=== PATIENT | male | born 1955 | race Caucasian/White ===

== ENCOUNTER 2018-08-03 09:54 | Inpatient (IN) ==
[2018-08-03] MEDS ORDERED: Aspirin 81 MG TAB.CHEW PO ONE (10:00)
[2018-08-03] MEDS ORDERED: Nitroglycerin 0.4 MG TAB.SUBL SL ONE (10:04)
[2018-08-03] MEDS: Nitroglycerin 0.4 MG TAB.SUBL SL PRN ×2 (10:11→10:37)
[2018-08-03] MEDS ORDERED: *HR* LORazepam 2 MG/ML VIAL IVP STA (10:12)
[2018-08-03] MEDS ORDERED: Ondansetron 4 MG/2 ML VIAL IVP ONE (10:12)
--- NOTE | 2018-08-03 10:13 | Emergency Department Note ---
Disposition Clinical Impression: STEMI (ST elevation myocardial infarction) Qualifiers: Involved coronary artery: left circumflex coronary artery Qualified Code(s): I21.21 - ST elevation (STEMI) myocardial infarction involving left circumflex coronary artery Disposition: Admitted As Inpatient Condition: Critical Time of Disposition: 10:18 General Adult HPI - General Stated complaint: Chest Pain Time Seen by Provider: 08/03/18 10:00 Source: patient Mode of arrival: EMS Limitations: no limitations Nursing Notes Reviewed: Yes Vital Signs Reviewed: Yes - History of Present Illness HPI Narrative: 63-year-old male, some day smoker with history of hypertension and obesity presents the emergency department with complaints of chest pain, shortness of breath and pain into his right upper extremity. This started approximately 1- 1/2 hours ago while at work. He states the pain is like a burning sensation in his chest, radiating into his right upper extremity. He states the pain is making him short of breath. He denies any back pain, nausea or vomiting. He does note his father had acute TX in his 50s. He denies any previous history of cardiac disease and has never had a catheterization or stress test. Pain Scale: 10 - Related Data Home Medications Medication Instructions Recorded Confirmed Unable To Obtain [Unable to Obtain] 08/03/18 08/03/18 Allergies Allergy/AdvReac Type Severity Reaction Status Date / Time No Known Allergies Allergy Verified 08/03/18 10:11 All systems ED: reviewed and negative except as stated. Review of Systems: As Per HPI Past Medical History - Past Medical History Medical history: Reports: hypertension - Social History Smoking Status: Current some day smoker Alcohol use: Reports: none Drug use: Reports: none Physical Exam General: Conversant. Appears stated age. Obese. Patient is significantly anxious, diaphoretic. Neck: No JVD. Trachea midline. Neck supple. Eyes: PERRL. No scleral icterus. HENT: Normocephalic and atraumatic. Moist mucus membranes. Cardiovascular: Regular rate and rhythm. Normal S1 and S2. No murmurs appreciated. Normal capillary refill. Extremities well perfused with 2+ distal pulses radial bilaterally. No edema. Pulmonary: Normal and equal breath sounds bilaterally, anteriorly and posteriorly. No wheezes, rales, or rhonchi. Tachypnea ot in respiratory distre ss. Speaks in full sentences. Abdomen: Soft, nondistended, and tontender. No bruits or masses. No guarding. Neuro: Alert and oriented x3. No slurred speech. No focal deficits noted. No pronator drift. No decreased sensation in bilateral upper extremities. Skin: No rashes noted on visualized skin. Musculoskeletal: No bony abnormalities visualized. Moves all extremities. Psych: Normal mood. Pleasant. Makes appropriate eye contact. - General General appearance: alert Course - Consultations Consultation #1: Discussed case with Dr. Quijano, mash processing operator. He recommends starting heparin drip, nitro, and brillinta. Will initiate STEMI activation given likely early ST changes. Time: 10:12 Vital Signs Temperature 98.6 F 08/03/18 09:56 Pulse Rate 125 08/03/18 09:56 Respiratory Rate 20 08/03/18 09:56 Blood Pressure 165/102 08/03/18 09:56 O2 Sat by Pulse Oximetry 100 08/03/18 09:56 Temperature 98.4 F 08/03/18 16:44 Pulse Rate 79 08/03/18 16:00 Respiratory Rate 14 08/03/18 16:00 Blood Pressure 160/93 08/03/18 16:00 O2 Sat by Pulse Oximetry 98 08/03/18 16:00 Oxygen Delivery Oxygen Delivery Room Air Medical Decision Making - [facility] Narrative Medical decision making narrative: 63-year-old male, Friday smoker with history of hypertension and family history of cardiac disease who presents to the emergency department with complaints of chest pain. On arrival the patient's tachycardic and diaphoretic. He appears significantly anxious and in distress. Initial EKG shows ST elevations in 2, [address] depressions in V2. Upon obtaining this EKG we did send this to mash processing operator, Dr. Quijano who given the story and risk factors agree that this is likely an acute ST elevation myocardial infarction. STEMI alert called. The patient did have improvement in his pain with nitroglycerin. He was also given a dose of Ativan given his significant anxiety. He recommends initiating the patient on heparin and probably into as well as aspirin. Chest x-ray was obtained prior to cardiac catheterization and shows no evidence of widened mediastinum to explain the patient's symptoms. Discussed case with on- call mash processing operator, Dr. Quijano who agrees with plan for admission and accepts the patient to the cardiology service for immediate cardiac catheterization. Patient agrees with and understands course of treatment plan including plan for admission. All questions answered. - Medical Records Medical records reviewed: Yes I reviewed the patient's medical records. - Lab Data Lab results reviewed: Yes I reviewed the patient's lab results. Result diagrams: 08/03/18 10:10 08/03/18 10:10 Lab Results 08/03/18 08/03/18 08/03/18 Range/Units 10:00 10:10 10:10 WBC 8.8 (4.3-11.1) K/mcL RBC 5.04 (4.19-5.50) M/mcL Hgb 15.1 (12.9-16.9) g/dL Hct 44.8 (37.5-50.1) % MCV 88.9 (83.0-100.0) fL MCH 30.0 (28.0-33.3) pg MCHC 33.7 (31.6-35.5) g/dL RDW 12.7 (11.5-14.5) % Plt Count 254 (140-400) K/mcL MPV 10.2 (9.4-12.4) fL Immature Gran % 0.5 (0-4) % Seg Neutrophils % 63.8 % Lymphocytes % 23.9 % Monocytes % 9.3 % Eosinophils % 1.4 % Basophils % 1.1 % Neutrophils # 5.6 (1.6-8.9) K/mcL Lymphocytes # 2.1 (0.6-4.6) K/mcL Monocytes # 0.8 (0.0-1.3) K/mcL Eosinophils # 0.1 (0.0-0.6) K/mcL Basophils # 0.1 (0.0-0.2) K/mcL PT 11.4 (9.4-12.1) Seconds INR 1.0 APTT 31.1 (26.0-36.0) Seconds Sodium 135 L (136-145) mEq/L Potassium 3.8 (3.5-5.1) mEq/L Chloride 102 (98-107) mEq/L Carbon Dioxide 23 (23-29) mEq/L BUN 16 (8-23) mg/dL Creatinine 0.86 (0.70-1.30) mg/dL Est GFR ( Amer) > 60 (> 60) Est GFR (Non-Af Amer) > 60 (> 60) BUN/Creatinine Ratio 19 (6-26) Glucose 225 H (70-105) mg/dL Calculated Osmolality 288 (280-300) Calcium 9.5 (8.6-10.3) mg/dL Troponin I < 0.03 (< 0.04) ng/mL - Radiology Data Radiology results reviewed: Yes I reviewed the patient's radiology results. Chest X-Ray 08/03/18 10:00 IMPRESSION: 1. No active pulmonary disease. D/ / Meek Souza MD / Meek Souza MD Interpreting Provider: Meek Souza MD - EKG Data EKG #1 EKG attestation: Yes I reviewed and interpreted this EKG. EKG results narrative: EKG timed 1002 shows sinus tachycardia rate of 131. Normal intervals. There are ST elevations in 2, 3 and aVF. There is minimal ST depression in V2. . There is slight ST elevation and B6. No prior for comparison. Attestation Statement - Attestation Attestation: I, Juan Ramon Morales, examined this patient and my medical decision-making was reviewed with the CLINICAL PHARMACY COORDINATOR/PA/Advanced Practice Nurse/Resident Physician. I agree with the documented findings, disposition and treatment plan as described except to the extent set forth below. 63-year-old male presents emergency Department with concerns of chest pain and right upper extremity pain. Patient states symptoms started within the past 2 hours while he was at work. He reports tingling in the right upper extremity that is very anxiety provoking. Patient states the pain is associated with diaphoresis, nausea, vomiting, shortness breath. Patient is tachycardic in the emergency department. He has ST elevations of leads 2 and 3 and aVF with depression in V2 without other ST depression. We spoke with the florist's decorator who agreed that patient would benefit from immediate catheterization. STEMI alert was called and patient was transferred to the Assembly Loader for further evaluation. He was given aspirin, Brillinta, heparin emergency department. Chest x-ray did not show evidence of aortic dissection. I reviewed the EKG with the resident and agree with the interpretation.
[2018-08-03] MEDS ORDERED: *HR* Heparin 5,000 UNIT/ML VIAL IVP ONE (10:14)
[2018-08-03] MEDS ORDERED: *HR* Ticagrelor 90 MG TABLET PO ONE (10:14)
[2018-08-03] MEDS ORDERED: *HR* Heparin 5,000 UNIT/ML VIAL IVP PRN ×4 (10:14→10:22)
[2018-08-03] MEDS ORDERED: *HR* Heparin 5,000 UNIT/ML VIAL ONE (10:16)
[2018-08-03] MEDS ORDERED: *HR* Ticagrelor 90 MG TABLET ONE (10:16)
[2018-08-03] MEDS ORDERED: 0.9 % Sodium Chloride 1,000 ML ONE ×4 (10:16→10:58)
[2018-08-03] MEDS ORDERED: Aspirin 81 MG TAB.CHEW ONE (10:16)
[2018-08-03 10:26] LABS: Basophils # 0.1 K/mcL (0.0-0.2); Basophils % 1.1 %; Eosinophils # 0.1 K/mcL (0.0-0.6); Eosinophils % 1.4 %; Hematocrit 44.8 % (37.5-50.1); Hemoglobin 15.1 g/dL (12.9-16.9); Immature Granulocytes % 0.5 % (0-4); Lymphocytes # 2.1 K/mcL (0.6-4.6); Lymphocytes % 23.9 %; Mean Corpuscular HGB Conc 33.7 g/dL (31.6-35.5); Mean Corpuscular Volume 88.9 fL (83.0-100.0); Mean Platelet Volume 10.2 fL (9.4-12.4); Monocytes # 0.8 K/mcL (0.0-1.3); Monocytes % 9.3 %; Neutrophils # 5.6 K/mcL (1.6-8.9); Platelet Count 254 K/mcL (140-400); Red Blood Count 5.04 M/mcL (4.19-5.50); Red Cell Distribution Width 12.7 % (11.5-14.5); Segmented Neutrophils % 63.8 %; White Blood Count 8.8 K/mcL (4.3-11.1)
[2018-08-03] MEDS ORDERED: *HR* FentaNYL (PF) 100 MCG/2 ML VIAL IVP ONE (10:28)
[2018-08-03] MEDS ORDERED: Heparin 25,000 UNIT/250 ML D5W 25,000 UNIT/250 ML IV.SOLN IVC SCH (10:30)
[2018-08-03 10:33] LABS: Prothrombin Time 11.4 Seconds (9.4-12.1)
[2018-08-03 10:36] LABS: Activated Partial Thrombo Time 31.1 Seconds (26.0-36.0)
[2018-08-03] MEDS ORDERED: Nitroglycerin 1,000 MCG/10 ML VIAL IV ONE ×2 (10:37→10:59)
[2018-08-03] MEDS ORDERED: Heparin 1,000 UNITS/500 mL 500 ML ONE ×2 (10:37→10:58)
[2018-08-03] MEDS ORDERED: ISOVUE-370 200 ML INFUS..BTL ONE ×2 (10:37→10:59)
[2018-08-03] MEDS ORDERED: *HR* Heparin 10,000 UNIT/10 ML VIAL ONE ×2 (10:37→10:58)
[2018-08-03] MEDS ORDERED: *HR* FentaNYL (PF) 100 MCG/2 ML VIAL ONE (10:41)
[2018-08-03] MEDS ORDERED: *HR* Midazolam HCl 2 MG/2 ML VIAL ONE (10:41)
[2018-08-03 10:47] LABS: BUN/Creatinine Ratio 19 (6-26); Blood Urea Nitrogen 16 mg/dL (8-23); Calcium 9.5 mg/dL (8.6-10.3); Carbon Dioxide 23 mEq/L (23-29); Chloride 102 mEq/L (98-107); Glucose 225 mg/dL (70-105); Osmolality,Calculated 288 (280-300); Potassium 3.8 mEq/L (3.5-5.1); Sodium 135 mEq/L (136-145); eGFR For African Americans > 60 (> 60); eGFR For Non-African Americans > 60 (> 60)
[2018-08-03 10:48] LABS: Troponin I < 0.03 ng/mL (< 0.04)
[2018-08-03] MEDS ORDERED: Tirofiban 12.5 MG/250ML 12.5 MG/250 ML BAG ONE (10:50)
[2018-08-03] MEDS: Tirofiban 12.5 MG/250ML 12.5 MG/250 ML BAG IVC SCH ×2 (11:35→17:13)
--- NOTE | 2018-08-03 11:41 | Invasive Diagnostic Lab Proc ---
Name: Shahzad Lane Date of Study: 08/03/2018 Date: 1955 Ht: 72.0in Medical Record#: [id number] Age: 63 Wt: 341.72lb Gender: Male BSA: 2.68 Order #: [id number] BMI: 46.28 Physicians Procedure Physician: Kassy Quijano MD Referring MD: Referring MD: Staff Name [facility] 10:45 AM Amador Rendon RN Device Processing Engineer 10:45 AM Brandon Mae RN Device Processing Engineer 10:45 AM Roro Chowdhury RT (R) Scrub 10:45 AM Chiqui Mcfarland RT (R) Scrub 10:45 AM Indications Indication STEMI Procedures Performed Procedure PRQ CARD REVASC ID 1 VSL L HRT ARTERY/VENTRICLE ANGIO Pre-Procedure Checklist Informed consent is complete signed and on chart. H&P is on chart. ID band is on and ID verified with patient. Patient NPO for procedure The procedure was described for the patient and questions were answered. Blood Pressure: 157/86 ECG is on chart. Plan of Care Patient will tolerate the procedure without complications. Adequate level of comfort will be maintained. Hemodynamics will remain stable Patient will recover from procedure without complications. Respiratory function will be maintained. Cardiac rhythm will remain stable. Patient temperature will be maintained. Patient and/or family have verbalized understanding of the procedure. Patient Education Intravenous Access Time IV Size Location DC'd Fluid/Drip Rate Units RN 18g 1 1/4" Patent On Arrival Rt Antecubital 0.9NaCl 100 ml/hr Brandon Mae RN Allergies No Known Allergies Vital Signs Time BP (mmHg) HR (bpm) O2 Sat. RR (bpm) LOC 10:46 AM / % 5 = Fully awake and oriented or at pre-proc level 10:46 AM 58 / 43 125 99 % 24 10:47 AM 145 / 87 115 97 % 11 11:02 AM 132 / 73 76 97 % 16 Procedural Medications Time Medication Dose Units Method Given By 10:46 AM Oxygen 2 L/min nasal cannula Brandon Mae RN 10:50 AM Lidocaine 2% 20 ml Subcutaneous Kassy Quijano MD 10:55 AM Heparin 4000 units Intravenous Brandon Mae RN 11:00 AM Nitroglycerin 200 mcg Intracoronary Arnold Quijano MD ASA Classification: Emergent Procedure: ASA score is assumed Segundo Score Preprocedure Postprocedure Activity 2- Moves 4 extremities sustained head lift Activity 2- Moves 4 extremities sustained head lift Circulation 2- SBP +/= 20 points of pre-anesthetic level Circulation 2- SBP +/= 20 points of pre-anesthetic level Consciousness 2- Awake and alert oriented x 3 Consciousness 2- Awake and alert oriented x 3 O2 Saturation 2- Able to maintain O2 satruation of 92% on room air O2 Saturation 2- Able to maintain O2 satruation of 92% on room air Respiratory 2- Able to deep breathe and cough well Respiratory 2- Able to deep breathe and cough well Total Score 10 Total Score 10 Contrast Agent: Isovue Diagnostic Contrast: 180 ml Total Contrast: 180 ml Fluoro Dose: 42 mGy Activated Clotting Time Time Seconds to Clot 10:54 AM 144 11:12 AM 268 Procedure Log Time Note Enter By 10:42 AM Pt arrived to slab miller operator 2 at 10:42 [facility] 10:42 AM Vita Castellano RN Position: Monitor Time in: 10:42 [facility] 10:42 AM Amador Rendon RN Position: Device Processing Engineer Time in: 10:42 [email or web address] 10:42 AM Brandon Mae RN Position: Device Processing Engineer Time in: 10:42 tsmmers 10:42 AM Roro Chowdhury RT (R) Position: Scrub Time in: 10:42 [email or web address] 10:42 AM Chiqui Mcfarland RT (R) Position: Scrub Time in: 10:42 tsmmers 10:44 AM CathStat 10:44 AM Vitals capture started with the following parameters, Patient=Adult, Interval=5 min, Initial Wcfrxtdq=169 mmHg, Deflation Rate=5 mmHg, Cuff placed on Left Arm 10:45 AM Patient charges- Angio tray pack, Navilyst 3mm J, Pulse Oximetry and ACIST tubing and transducer [facility] 10:45 AM Physician arrived 10:45 [facility] 10:45 AM Meet and greet completed [facility] 10:45 AM Sign in performed according to hospital policy. Informed consent was obtained. [facility] 10:45 AM Procedure start 10:45 [facility] 10:46 AM CM=533 bpm, NIBP=58/43 mmhg, SpO2=99.0 %, Resp=24 B/min, EtCO2=29 mmHg 10:46 AM Time: 10:46 Oxygen on at 2 L/min per nasal cannula [facility] 10[facility] AM Time: 10:46 Patient comfortable and pain free: Yes tsoumm 10:46 AM Time: 10:46LOC: 5 = Fully awake and oriented or at pre-proc level tsoummers 10:46 AM NIBP STAT measurement started. 10:46 AM Clinical Presentation: STEMI or equivalent [facility] 10:47 AM Time out was performed according to hospital policy. Conscious sedation and anesthesia was achieved (see medication log with in this report above) [facility] 10:47 AM Critical cardiac patient with acute ID was brought emergently to the cardiac woven label designer for immediate coronary angiography and intervention if clinically indicated. [facility] 10:47 AM NIBP STAT measurement started. 10:47 AM Recorded ECG: VP=990 Condition=Condition 1 10:47 AM BN=969 bpm, EHRK=309/87 mmhg, SpO2=97.0 %, Resp=11 B/min, EtCO2=30 mmHg 10:49 AM Pressure channel 1 zeroed. 10:50 AM Time: 10:50 20 ml Lidocaine 2% to right groin Subcutaneous Given by Kassy Quijano MD [facility] 10:50 AM Micro-Introducer Kit utilized for sheath placement [facility] 10:50 AM Access obtained by percutaneous puncture. 6Fr 10cm Terumo Novelty sheath placed in right Femoral artery. [id number] [facility] 10:51 AM 5Fr FL 4 catheter inserted over the wire [facility] 10:51 AM 0.035 145cm Navilyst 3mmJ wire [id number] [facility] 10:52 AM wire removed [facility] 10:52 AM LCA angiography performed in multiple views. [facility] 10:53 AM Recorded Pressure: Ao, KR=613, Condition=Condition 1 (Aorta) Ao 109/83/96 10:54 AM Catheter removed [facility] 10:54 AM 5Fr FR 4 catheter inserted over the wire [facility] 10:54 AM At 10:54 the ACT was 144 seconds. [facility] 10:55 AM Time: 10:55 Heparin 4000 units Intravenous Given by Brandon Mae RN [facility] 10:55 AM RCA angiography performed in multiple views. 10:55 AM Recorded Pressure: Ao, HR=75, Condition=Condition 1 (Aorta) Ao 99/50/78 10:56 AM Catheter removed tsoumm 10:56 AM 6Fr XB3.5 [place] Bright-Tip guide catheter was used to cannulate the PCI vessel successfully. reused? No tsmm 10:56 AM Inflation device was opened. tsmm 10:56 AM Lesion found in 1st Marginal. Pre Stenosis: 100 Pre DAISY Flow: 0: No Flow/No perfusion tsmm 10:57 AM Circumflex, Obtuse Marginal, Left Posterior Descending, and Left Posterolateral Coronary Arteries with 100 % stenosis. If graft is supplying this area, 0 % stenosis tsmm 10:58 AM acist injector failure. Setting up mannifold. 11:00 AM Time: 11:00 Nitroglycerin 200 mcg Intracoronary Given by Arnold Quijano MD 11:01 AM NIBP STAT measurement started. 11:02 AM HR=76 bpm, WXFG=988/73 mmhg, SpO2=97.0 %, Resp=16 B/min, EtCO2=29 mmHg 11:02 AM .014 [employer] Pearson 190cm guide wire across target lesion- successful. reused? No mm 11:05 AM 2.0 mm x 20 mm Emerge Monorail balloon across target lesion- successful. reused? No mm 11:05 AM Balloon inflated @ 6 keri for 5 seconds oumm 11:06 AM Balloon inflated @ 6 keri for 9 seconds [facility] 11:07 AM Recorded Pressure: Ao, HR=74, Condition=Condition 1 (Aorta) Ao 107/61/82 11:08 AM Balloon catheter removed intact. tsmm 11:08 AM 3.0mm x 28mm Synergy drug-eluting stent across target lesion- successful Lot #[id number] mm 11:10 AM Stent deployed @ 9 keri for 5 seconds tsoumm 11:11 AM Stent balloon reinflated @ 9 keri for 14 seconds tsmm 11:11 AM Stent delivery system removed intact. tsoumm 11:12 AM At 11:12 the ACT was 268 seconds. [facility] 11:12 AM Recorded Pressure: Ao, HR=77, Condition=Condition 1 (Aorta) Ao 122/66/91 11:15 AM Guide wire removed intact. 11:16 AM Guide catheter removed intact. 11:16 AM 5Fr Pigtail catheter inserted over the wire [facility] 11:17 AM Catheter crossed the aortic valve and was selectively placed in the left ventricle. Pressures recorded on pullback for left heart catheterization. 11:17 AM Bolus angiogram of left Ventricle complete: hand injection 11:18 AM Recorded Pressure: LV, HR=77, Condition=Condition 1 (Left Ventricle) LV 120/19 11:18 AM Recorded Pressure: LV, Ao, HR=74, Condition=Condition 1 (Left Ventricle) LV 124/01/05, (Aorta) Ao 117/58/85 11:19 AM Catheter removed 11:19 AM Procedure completed at 11:19 08/03/2018[facility] 11:20 AM Sign out completed: Radiation Dose 700.21 mGy, 41.5 Gy/cm2 Fluoro Time: 7.4 Isovue 370 - 200ml contrast 180 ml given by Kassy Quijano MD. Complications: None. The patient was discharged out of the woven label designer in stable condition. Sedation minutes no sedation administered. Cardiac Rehab Consult needed: Yes. Confirmed administered medications: Yes 11:20 AM Isovue 370 - 200ml,1 Bottle(s) used. 11:21 AM Arterial sheath pulled, Angio-seal closure device used and was Successful [id number] S/N. [facility] 11:21 AM Estimated Blood Loss: less than 20cc mm 11:21 AM Post ECG NSR mm 11:21 AM Post Blood Pressure 132/73 [facility] 11:21 AM Information taught Cardiac Cath, PCI, and Angioseal [facility] 11:21 AM Education needs Procedure, Plan of Care, and Responsibilities of Patient in Care [facility] 11:21 AM Learning barriers :None mm 11:21 AM Education Methods Verbal [facility] 11:22 AM Education evaluation Able to repeat information [facility] 11:22 AM Site status No bleeding/hematoma - Rt Groin as reported by Sites, Roro RT (R) at 11:22 [facility] 11:22 AM Opsite applied [facility] 11:22 AM Plavix, Effient or Brilinta given No- 180mg brilinta administered in ED PURE PAK MACHINE OPERATOR mm 11:22 AM Delay to floor No mm 11:22 AM no family present 11:26 AM Coronary Dominance: right mm 11:26 AM Did you address DAISY flow and Dominance? YesCoronary Dominance: right mm 11:30 AM Report given to Yesenia MORALES Pt taken to ICU Room #4. 11:30 mm 11:30 AM Patient out of room: 11:30 oumm 11:33 AM Lesion found in Mid RCA. Pre Stenosis: 65 Pre DAISY Flow: oumm 11:33 AM Lesion found in Mid LAD. Pre Stenosis: 50 Pre DAISY Flow: mm 11:33 AM Lesion found in Distal Circumflex. Pre Stenosis: 60 Pre DAISY Flow: oumm 11:34 AM Mid/Distal Left Anterior Descending Coronary Artery and diagonal branches with 50% stenosis. If graft is supplying this area, 0 % stenosis [facility] 11:34 AM Right Coronary, Right Posterior Descending Arteries with Right Posterolateral and Acute Marginal branches with 65 % stenosis. If graft is supplying this area, 0 % stenosis [facility] Complications Complication None Hemodynamics Pressures Site Systolic/A Wave Diastolic/V Wave Mean AO 109 83 96 AO 99 50 78 AO 107 61 82 AO 122 66 91 LV 120 10 19 LV 124 11 19 AO 117 58 85 Post Procedure Information Blood Pressure: 132/73 mmHg Rhythm: NSR Post procedural instructions were given Closure Device Time Device Success/Fail 08/03/2018 11:23:00 AM Angio-Seal VIP Successful Site Checks Time Location Status Staff Sheath In? Note 11:22 AM Rt Groin No bleeding/hematoma Sites, Roro RT (R) Pulses Updated by Vita Castellano RN on 08/03/2018 11:36:14 AM electronically signed on 08/03/2018 11:36:33 AM with status of Final
--- NOTE | 2018-08-03 11:51 | Cardiology History & Physical ---
Date of Encounter: 08/03/18 Time of Encounter: 11:44 Assessment and Plan (1) STEMI (ST elevation myocardial infarction) Current Visit: Yes Status: Acute The assessment and plan as outlined above was discussed with the patient and/or family members who expressed understanding and agreement. All questions were answered. Severe chest pain, Inferior ST elevations, R/B/A d/w patient and he agrees to proceed with emergent LHC Qualifiers: Involved coronary artery: left circumflex coronary artery Qualified Code(s ): I21.21 - ST elevation (STEMI) myocardial infarction involving left circumflex coronary artery History of Present Illness Chief complaint: Chest Pain HPI: Mr. Lane is a 63 year old male hx of HTN, here with new onset chest pain started at 8am excruciating found to have inferior STEMI. RSCP burning radiating down avtar UE's. R/B/A of emergent LHC d/w patient and he agrees to proceed. History limited due to emergent LHC and severe chest pain. Past Med Surg Social Fam HX - Past Medical History Medical history: hypertension - Social History Smoking Status: Current some day smoker Alcohol use: none Drug use: none Medications and Allergies Unable To Obtain [Unable to Obtain] 08/03/18 [History] Allergy/AdvReac Type Severity Reaction Status Date / Time No Known Allergies Allergy Verified 08/03/18 10:11 All Systems Review: The remainder of the systems were reviewed and are negative Physical Examination Vital Signs, Last 4 Hours Temp Pulse Resp BP Pulse Ox 08/03/18 10:36 117 19 99 08/03/18 10:24 132 22 99 08/03/18 10:10 139 19 157/86 100 08/03/18 09:56 98.6 F 125 20 165/102 100 General: Conversant, No Apparent Distress HEENT: Atraumatic, Normocephaly, Mucus Membranes Moist Neck: No JVD, Normal carotid pulses Cardiac: Reg Rate and Rhythm, Normal S1 and S2, No Murmur Lungs: Normal Breath Sounds, No Wheeze, Rales, Rhonchi Neuro: Alert and responsive, No focal deficits noted Abdomen: Soft, Non-Tender Skin: No rashes noted on visualized skin Musculoskeletal: No Chest Wall Tenderness Extremities: No Clubbing, No Cyanosis, No Edema, Normal Pulses Results 08/03/18 10:10 08/03/18 10:10 Lab Results 08/03/18 08/03/18 08/03/18 10:00 10:10 10:10 WBC 8.8 Hgb 15.1 Hct 44.8 Plt Count 254 INR 1.0 APTT 31.1 Sodium 135 L Potassium 3.8 Chloride 102 Carbon Dioxide 23 BUN 16 Creatinine 0.86 Glucose 225 H Calcium 9.5 Troponin I < 0.03
--- NOTE | 2018-08-03 17:19 | Electrocardiograph Report ---
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
[2018-08-03] MEDS ORDERED: Perflutren Lipid Microsphere 1.3 ML in 0.9 % Sodium Chloride 8.7 ML IVP ONE (17:35)
[2018-08-03] MEDS: *HR* Ticagrelor 90 MG TABLET PO SCH (19:53)
[2018-08-03] MEDS ORDERED: Ondansetron 4 MG/2 ML VIAL IVP PRN (22:03)
[2018-08-03] MEDS ORDERED: *HR* Metoprolol 5 MG/5 ML VIAL IVP ONE (23:59)
[2018-08-04 05:12] LABS: Basophils # 0.1 K/mcL (0.0-0.2); Basophils % 0.6 %; Eosinophils % 0.3 %; Hematocrit 45.7 % (37.5-50.1); Hemoglobin 15.2 g/dL (12.9-16.9); Immature Granulocytes % 0.3 % (0-4); Lymphocytes # 1.4 K/mcL (0.6-4.6); Mean Corpuscular HGB Conc 33.3 g/dL (31.6-35.5); Mean Corpuscular Hemoglobin 30.1 pg (28.0-33.3); Mean Corpuscular Volume 90.5 fL (83.0-100.0); Mean Platelet Volume 10.1 fL (9.4-12.4); Monocytes % 8.3 %; Neutrophils # 9.4 K/mcL (1.6-8.9); Platelet Count 275 K/mcL (140-400); Red Blood Count 5.05 M/mcL (4.19-5.50); Segmented Neutrophils % 78.5 %
[2018-08-04 05:31] LABS: BUN/Creatinine Ratio 14 (6-26); Blood Urea Nitrogen 11 mg/dL (8-23); Calcium 9.7 mg/dL (8.6-10.3); Carbon Dioxide 23 mEq/L (23-29); Chloride 105 mEq/L (98-107); Glucose 139 mg/dL (70-105); Osmolality,Calculated 288 (280-300); Potassium 3.9 mEq/L (3.5-5.1); Sodium 138 mEq/L (136-145); eGFR For African Americans > 60 (> 60); eGFR For Non-African Americans > 60 (> 60)
[2018-08-04] MEDS: *HR* Ticagrelor 90 MG TABLET PO SCH ×2 (07:54→20:21)
[2018-08-04] MEDS ORDERED: Aspirin 81 MG TAB.CHEW PO SCH (09:00)
--- NOTE | 2018-08-04 09:12 | Cardiology Progress Note ---
Date of Encounter: 08/04/18 Time of Encounter: 09:09 Assessment and Plan (1) STEMI (ST elevation myocardial infarction) Current Visit: Yes Status: Acute Presented with severe chest pain, Inferior ST elevations, taken to emergent C 08/03/18. C--patient had successful PTCA/Drug-Eluting Stent placement in the 1st OM. There is severe one vessel coronary artery disease. LVEF is 50%. DAPT (ASA and Brilinta) uninterrupted x 1 year. Pt verbalizes understanding. Continue Statin and BB. Will increase BB for BP and HR. Right femoral access site healing well. No bleeding, hematoma or ecchymosis noted. No events on tele. Labs stable. Pt denies chest pain overnight. Will step down today. Anticipate d/c home tomorrow. Qualifiers: Involved coronary artery: left circumflex coronary artery Qualified Code(s): I21.21 - ST elevation (STEMI) myocardial infarction involving left circumflex coronary artery Discussion w patient/family: The assessment and plan as outlined above was discussed with the patient and/or family members who expressed understanding and agreement. All questions were answered. Thank you for involving us in the care of your patient. Please call w ith any questions. I will discuss all the above with Dr. Doherty and make changes as necessary. Subjective Principal diagnosis: STEMI Interval history: No acute complaints this AM. Objective Vital Signs, Last 4 Hours Temp Pulse Resp BP Pulse Ox 08/04/18 08:04 98.2 F 08/04/18 08:00 105 18 154/85 97 08/04/18 05:54 63 16 129/88 92 Vital Signs Temp Pulse Resp BP Pulse Ox 08/04/18 08:04 98.2 F 08/04/18 08:00 105 18 154/85 97 08/04/18 05:54 63 16 129/88 92 08/04/18 04:57 68 16 126/72 96 08/04/18 03:51 72 16 118/72 93 08/04/18 03:16 87 25 118/82 97 08/04/18 02:00 64 14 137/71 97 08/04/18 00:47 85 20 143/73 98 08/04/18 00:34 98.1 F 08/03/18 23:52 82 20 142/75 98 08/03/18 23:11 97 08/03/18 23:00 87 16 182/97 97 08/03/18 21:50 77 18 152/108 96 08/03/18 21:00 87 18 182/111 97 08/03/18 20:09 98.1 F 08/03/18 19:55 86 16 176/93 96 08/03/18 19:00 92 18 177/93 97 08/03/18 18:00 86 13 191/87 98 08/03/18 17:00 85 16 146/83 97 08/03/18 16:44 98.4 F 08/03/18 16:00 79 14 160/93 98 08/03/18 15:11 79 08/03/18 15:00 77 14 144/84 98 08/03/18 14:25 73 14 162/92 98 08/03/18 13:25 85 14 131/63 98 08/03/18 12:55 77 15 145/73 98 08/03/18 12:25 73 15 121/57 98 08/03/18 12:10 70 14 121/57 98 08/03/18 11:55 83 14 121/57 98 08/03/18 11:40 98.2 F 80 15 136/66 97 08/03/18 10:36 117 19 99 08/03/18 10:24 132 22 99 08/03/18 10:10 139 19 157/86 100 08/03/18 09:56 98.6 F 125 20 165/102 100 Intake and Output 08/03/18 08/04/18 08/04/18 23:59 07:59 15:59 Intake Total 1540 / 1540 120 / 480 360 / 480 Output Total 0 / 625 950 / 1050 100 / 1050 Balance 1540 / 915 -830 / -570 260 / -570 Intake: IV Fluids 1300 / 1300 0.9 % Sodium Chloride 1,000 ML 1000 / 1000 @ 0 mls/hr .ROUTE .STK-MED ONE Rx#:[id number] Aggrastat 12.5 MG/250 ML 12.5 300 / 300 mg In 250 ml @ 0.15 MCG/KG/MIN 28.005 mls/hr IVC .[id number] [facility] Rx#:[id number] Oral 240 / 240 120 / 480 360 / 480 Output: Urine 0 / 625 950 / 1050 100 / 1050 Other: Meal Breakfast Percent of Meal Consumed 95% Weight 154.6 kg Patient Weight 08/04/18 23:59 Weight 154.6 kg General: Conversant, No Apparent Distress HEENT: Atraumatic, Normocephaly, Mucus Membranes Moist Neck: No JVD, Normal carotid pulses Cardiac: Reg Rate and Rhythm, Normal S1 and S2, No Murmur Lungs: Normal Breath Sounds, No Wheeze, Rales, Rhonchi Neuro: Alert and responsive, No focal deficits noted Abdomen: Soft, Non-Tender Skin: Other (right femoral access site healing well. No bleeding, hematoma or ecchymosis noted.) Musculoskeletal: No Chest Wall Tenderness Extremities: No Clubbing, No Cyanosis, No Edema, Normal Pulses Results 08/04/18 04:32 08/04/18 04:32 Lab Results 08/03/18 08/03/18 08/03/18 10:00 10:10 10:10 WBC 8.8 Hgb 15.1 Hct 44.8 Plt Count 254 INR 1.0 APTT 31.1 Sodium 135 L Potassium 3.8 Chloride 102 Carbon Dioxide 23 BUN 16 Creatinine 0.86 Glucose 225 H Calcium 9.5 Troponin I < 0.03 08/04/18 08/04/18 04:32 04:32 WBC 12.0 H Hgb 15.2 Hct 45.7 Plt Count 275 INR APTT Sodium 138 Potassium 3.9 Chloride 105 Carbon Dioxide 23 BUN 11 Creatinine 0.77 Glucose 139 H Calcium 9.7 Troponin I Short CBC 08/04/18 08/03/18 Range/Units 04:32 10:10 WBC 12.0 H 8.8 (4.3-11.1) K/mcL Hgb 15.2 15.1 (12.9-16.9) g/dL Hct 45.7 44.8 (37.5-50.1) % Plt Count 275 254 (140-400) K/mcL Neutrophils # 9.4 H 5.6 (1.6-8.9) K/mcL BMP 08/04/18 08/03/18 Range/Units 04:32 10:10 Sodium 138 135 L (136-145) mEq/L Potassium 3.9 3.8 (3.5-5.1) mEq/L Chloride 105 102 (98-107) mEq/L Carbon Dioxide 23 23 (23-29) mEq/L BUN 11 16 (8-23) mg/dL Creatinine 0.77 0.86 (0.70-1.30) mg/dL Glucose 139 H 225 H (70-105) mg/dL Calcium 9.7 9.5 (8.6-10.3) mg/dL Cardiac Enzymes 08/03/18 Range/Units 10:10 Troponin I < 0.03 (< 0.04) ng/mL Impressions Chest X-Ray 08/03/18 10:00 IMPRESSION: 1. No active pulmonary disease. D/ / Meek Souza MD / Meek Souza MD Interpreting Provider: Meek Souza MD Active Medications Aspirin (Aspirin) 81 mg PO DAILY [facility] Stop: 02/03/19 09:01 Last Admin: 08/04/18 07:54 Dose: 81 mg Documented by: Atorvastatin Calcium (Lipitor) 80 mg PO HS [facility] Stop: 02/03/19 21:01 Hydralazine HCl (Hydralazine) 20 mg IVP Q6HR PRN PRN Reason: Hypertension Stop: 02/02/19 21:08 Last Admin: 08/03/18 21:36 Dose: 20 mg Documented by: Lisinopril (Zestril) 5 mg PO DAILY [facility]; Protocol Stop: 02/02/19 16:31 Last Admin: 08/04/18 07:54 Dose: 5 mg Documented by: Metoprolol Tartrate (Lopressor) 12.5 mg PO BID [facility] Stop: 02/02/19 21:01 Last Admin: 08/04/18 07:53 Dose: 12.5 mg Documented by: Nitroglycerin (Nitroglycerin) 0.4 mg SL Q5MIN PRN PRN Reason: Chest Pain Stop: 02/02/19 10:12 Last Admin: 08/03/18 10:37 Dose: 0.4 mg Documented by: Ondansetron HCl (Zofran) 4 mg IVP Q6HR PRN; Protocol PRN Reason: Nausea Stop: 02/02/19 22:04 Ticagrelor (Brilinta) 90 mg PO BID [facility] Stop: 02/02/19 21:01 Last Admin: 08/04/18 07:54 Dose: 90 mg Documented by: - Imaging and Cardiology Echo: pending - EKG Interpretation EKG results cardiology: other (SR, PACs and PVCs noted. No significant arrhythmias.) Consult Discharge Plan - Plan Referrals: NONE,PCP [Primary Care Provider] -
[2018-08-04] MEDS ORDERED: Nitroglycerin 0.4 MG TAB.SUBL SL PRN (10:16)
[2018-08-04] MEDS ORDERED: Ondansetron 4 MG/2 ML VIAL IVP PRN (10:16)
--- NOTE | 2018-08-04 14:45 | Electrocardiograph Report ---
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
[2018-08-04] MEDS: *HR* Heparin 5,000 UNIT/ML VIAL SQ SCH (17:35)
[2018-08-04] MEDS ORDERED: *HR* Heparin 5,000 UNIT/ML VIAL SQ SCH (18:00)
[2018-08-05] MEDS: *HR* Heparin 5,000 UNIT/ML VIAL SQ SCH (06:05)
[2018-08-05] MEDS: *HR* Ticagrelor 90 MG TABLET PO SCH (07:50)
[2018-08-05 08:00] VITALS: BP 153/90
--- NOTE | 2018-08-05 08:55 | Discharge Summary ---
Orders not resulted at time of discharge: Pending orders 08/04/18 07:00 ECG 12 lead ECG [ECG] Routine Date of Encounter: 08/05/18 Time of Encounter: 08:52 - Discharge Diagnosis (1) STEMI (ST elevation myocardial infarction) Priority: Primary Status: Acute Qualifiers: Involved coronary artery: left circumflex coronary artery Qualified Code(s): I21.21 - ST elevation (STEMI) myocardial infarction involving left circumflex coronary artery - Hospital Course Hospital course: Mr. Lane is a 63 year old male presented with severe chest pain, Inferior ST elevations, taken to emergent C 08/03/18. [facility]--patient had successful PTCA/Drug-Eluting Stent placement in the 1st OM. There is severe one vessel CAD. LVEF is 50%. DAPT (ASA and Brilinta) uninterrupted x 1 year. Pt verbalizes understanding. Continue Statin and BB. Will increase BB for BP and HR. Resumed home ARB. Right femoral access site healing well. No bleeding, hematoma or ecchymosis noted. No events on tele. Labs stable. Pt denies chest pain overnight. Labs, vitals and tele is stable. No events. D/C home in stable condition. - Time Spent with Patient Total time spent providing and/or coordinating discharge services: Less than 30 minutes - Discharge Medications Prescriptions: New Aspirin 81 mg PO DAILY #30 tab.chew Ticagrelor [Brilinta] 90 mg PO BID #60 tablet Metoprolol [Lopressor] 25 mg PO BID #60 tablet Nitroglycerin 0.4 mg SL Q5MIN PRN #30 tab.subl PRN Reason: Chest Pain Atorvastatin Calcium [Lipitor] 80 mg PO HS #30 tab Continued Losartan Potassium 100 mg PO DAILY ALPRAZolam [Xanax 0.5 MG Tablet] 0.5 mg PO PRN PRN PRN Reason: Anxiety Discontinued Amlodipine Besylate 10 mg PO DAILY Home Medications: ALPRAZolam [Xanax 0.5 MG Tablet] 0.5 mg PO PRN PRN 08/04/18 [History] Losartan Potassium 100 mg PO DAILY 08/04/18 [History] Aspirin 81 mg PO DAILY #30 tab.chew 08/05/18 [Rx] Atorvastatin Calcium [Lipitor] 80 mg PO HS #30 tab 08/05/18 [Rx] Metoprolol [Lopressor] 25 mg PO BID #60 tablet 08/05/18 [Rx] Nitroglycerin 0.4 mg SL Q5MIN PRN #30 tab.subl 08/05/18 [Rx] Ticagrelor [Brilinta] 90 mg PO BID #60 tablet 08/05/18 [Rx] Allergies/Adverse Reactions: Allergy/AdvReac Type Severity Reaction Status Date / Time No Known Allergies Allergy Verified 08/04/18 14:52 Date of admission: 08/03/18 11:17 Primary care physician: PCP NONE Consults: 08/03/18 10:14 Consult to Cardiac Rehabilitation-Phase1 [CONS] Routine Comment: Reason for Consult: AMI Call Completed: Yes Consult to Nurse Navigator [CONS] Routine Comment: 08/03/18 11:42 Consult to Cardiac Rehabilitation-Phase1 [CONS] Routine Comment: Reason for Consult: AMI Call Completed: Yes Consult to Nurse Navigator [CONS] Routine Comment: 08/03/18 12:14 Consult to Pastoral Services [CONS] Routine Comment: Consult to Architectural Examiner [CONS] Routine Reason for SW Consult: Advance directive information Discharging clinician: Ricardo Swenson Anticipated date of discharge: 08/05/18 Physical Examination Vital Signs, Last 4 Hours Temp Pulse Resp BP 08/05/18 07:53 98.5 F 86 18 153/90 08/05/18 05:04 98.2 F 82 16 142/97 Vital Signs Temp Pulse Resp BP Pulse Ox 08/05/18 07:53 98.5 F 86 18 153/90 08/05/18 05:04 98.2 F 82 16 142/97 08/05/18 04:00 61 08/04/18 23:20 52 08/04/18 23:00 97.8 F 72 18 151/95 08/04/18 20:12 99.8 F H 84 18 139/85 97 08/04/18 16:17 99.0 F 88 18 138/77 98 08/04/18 15:00 99.0 F 88 18 138/77 98 08/04/18 12:00 98 18 132/78 97 08/04/18 11:30 98.2 F 08/04/18 10:00 83 18 128/78 97 Intake and Output 08/04/18 08/05/18 08/05/18 23:59 07:59 15:59 Intake Total 360 / 840 120 / 600 480 / 600 Balance 360 / -310 120 / 600 480 / 600 Intake: Oral 360 / 840 120 / 600 480 / 600 Other: Meal Dinner Breakfast Percent of Meal Consumed 100% 100% # Voids 1 1 Weight 154 kg Patient Weight 08/05/18 23:59 Weight 154 kg General: Conversant, No Apparent Distress HEENT: Atraumatic, Normocephaly, Mucus Membranes Moist Neck: No JVD, Normal carotid pulses Cardiac: Reg Rate and Rhythm, Normal S1 and S2, No Murmur Lungs: Normal Breath Sounds, No Wheeze, Rales, Rhonchi Neuro: Alert and responsive, No focal deficits noted Abdomen: Soft, Non-Tender Skin: No rashes noted on visualized skin Musculoskeletal: No Chest Wall Tenderness Extremities: No Clubbing, No Cyanosis, No Edema, Normal Pulses - Patient Status Disposition: Home, Self-Care Condition: Fair Functional capacity at discharge: independent ambulation Overall status at discharge: patient is progressing back to baseline - Discharge Instructions Instructions: Myocardial Infarction (DC), Myocardial Infarction (GEN), Coronary Artery Disease (DC), Coronary Artery Disease (GEN) Follow Up With: Ricardo Swenson CNP [Advanced Practice Nurse] - (office will call patient at home with follow up appointment) Yomi Juarez DO [Non-Partnered Physician] - 08/13/18 11:30 am Additional Instructions: RISK FACTORS: STOP SMOKING: If you smoke, STOP. Smoking or tobacco use significantly increases your risk of heart disease because nicotine causes the arteries to narrow or constrict. It also causes fats to stick to the artery. Your chances of having a heart attack are greatly increased if you continue to smoke. For more information, call the education line for smoking cessation 4-455-FGRNSFE EAT A LOW FAT/CHOLESTEROL/SODIUM DIET: This diet may help reduce your chances of having a heart attack. LIFTING: Avoid lifting anything more than 10 pounds for 5-7 days Prior to straining, laughing, sneezing and/or coughing, apply manual pressure directly over insertion site. ACTIVITY: You may walk or climb stairs as tolerated You can resume sexual activity as tolerated In general, you are encouraged to engage in a minimum of 30 minutes or more of moderate intensity physical activity, such as brisk walking, daily or at least 3-4 times weekly BATHING Do not submerge the site into water (bath tub, hot tub, swimming pool) for 1 week. This can be a source for infection into the blood stream. You may shower after 24 hours SITE CARE: After 24 hours, you may remove the dressing and leave the site open to air. Keep the site clean and dry. Clean gently and pat dry. You can expect bruising and tenderness that gradually resolve within a week or two. Return to work as instructed per your physician Resume driving as instructed per physician Keep all scheduled follow up appointments Resume medications as instructed IMPORTANT: If prescribed a Platelet Aggregation Inhibitor such as, Plavix, Brilinta or Effient: Duration of therapy is minimum one year These medications are often used in combination with Aspirin in prevention of future heart attacks Never discontinue unless consult with your Armature Winder Repair STROKE (CVA) Risk factors for a stroke are: Age, cigarette smoking, diabetes, excessive alcohol consumption, family history, high blood pressure, overweight, physical inactivity, prior stroke, heart attack, diagnosis of carotid artery stenosis or other artery disease. Warning signs: Sudden numbness or weakness of the face, arm or leg; especially on one side of the body, sudden confusion, trouble speaking or understanding, sudden trouble seeing in one or both eyes, sudden trouble walking, dizziness, loss of balance or coordination, sudden severe headache with no cause. Call 911 or go to the Emergency Room. CONGESTIVE HEART FAILURE: If you have been diagnosed with Congestive Heart Failure (CHF) and your symptoms return, make an appointment with your physician Weigh yourself daily. Notify your physician if you have a weight gain of two or more pounds in one day or five or more pounds in one week. If you experience any difficulty breathing, please call 911 BLEEDING: Although the risk of bleeding is minimal, it can happen. If you have any bleeding from the site, apply firm pressure above the puncture site for 10-15 minutes. If the bleeding does not stop, continue manual pressure and call 911 Contact your physician if: You develop a fever greater than 101 degrees Fahrenheit Your site becomes reddened or has any drainage You have an increase in pain or burning at the site or if a large knot forms at the site. If you experience chest pain, shortness of breath, dizziness, or extreme tiredness, stop the activity and rest. Please notify your physicians office if you experience any of these symptoms and they are not relieved by rest please call 911! - Diet and Activity Activity: as per physical therapy Diet: low fat, low cholesterol
[2018-08-05] MEDS ORDERED: Aspirin 81 MG TAB.CHEW PO SCH (09:00)
--- NOTE | 2018-08-05 18:10 | Electrocardiograph Report ---
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
== END 2018-08-05 11:15 | disposition home or self-care (01) | DRG 247 ==
LOC: EMEROOARM 09:54 → ICNU 10:39 → SUATTDRO 11:17 → 2NNU 08-04 13:37
PROVIDERS: ADMIT Internal Medicine Cardiovascular Disease; ATTEND Internal Medicine